=== PATIENT | female | born 1985 | race Hispanic/Latino ===

== ENCOUNTER 2016-09-25 16:30 | Emergency (ER) | payer MEDICAID ==
[~2016-09-25 16:30] MED LIST: CEPH-512 PO; DOCU-41 PO; IBUP-1827 PO; Lanolin TOPICAL; OXYC1TAB24 PO; PREN1TAB69 PO
--- NOTE | 2016-09-25 16:43 | ED.REPORT ---
HPI-URI / Cough / Cold Date of Service Sep 25, 2016 ED Provider: History of Present Illness: has influenza has nasal congestion also takes omeprazole. [facility] is primary care, was laying down when this started. symptoms have cleared now. Seen at [facility] 2 days ago, has positive influenza Nursing Notes Stated Complaint: DIFFICULTY BREATHING Nursing Notes Reviewed: Yes Allergies: Coded Allergies: No Known Allergies (Verified , 06/20/16) Scheduled Cephalexin (Keflex) 500 Mg Capsule 500 MG PO QID Docusate Sodium (Colace) 100 Mg Capsule 100 MG PO BID Vit/Fe Fumarate/Fa-Expunged Drug, Do (-Expunged Drug, Do Not Renew!) 1 Each Tablet 1 EACH PO DAILY Scheduled PRN ([Lanolin]) 2 APPLIC/GM OINT 1 APPLIC TOPICAL PRN PRN PRN apply to nipples Ibuprofen (Ibuprofen) 600 Mg Tablet 600 MG PO Q6H PRN PRN For Mild Pain oxyCODONE-Acetaminophen 5-325 mg (oxyCODONE-Acetaminophen 5-325 mg) 1 Each Tablet 1-2 TAB PO Q4H PRN PRN For Pain General Time Seen by MD: 16:42 Chief Complaint Cough, productive... Hx Obtained From: Patient Onset Occurred: 1 - 4 hours ago Symptom Duration: Waxes and wanes (resolved) Past Medical History Past Medical History Mastitis Past Surgical History Reports: Cholecystectomy Family History Reports: Diabetes mellitus Smoking History Never Smoker Social History Alcohol Use: Denies alcohol use Drug Use: Denies drug use Other Social History: Good social support, , Lives with children, Local resident Occupation no work or school 09/25/2016 Ambulatory Status Independent Review of Systems Basic Review of Systems Cardiovascular: No chest pain, No dyspnea on exertion, No orthopnea, No parox noct dyspnea, No palpitations : No dysuria, No frequency Musculoskeletal: No extremity swelling, No extremity pain, Full range of motion , Joints NL Hematologic: No bleeding, No bruising Endocrine: No cold intolerance, No heat intolerance, No weight gain, No weight loss Psychiatric: Normal thought content Physical Exam Initial Vital Signs Vital Signs (First) Date Time Temp Pulse Resp B/P Pulse Ox O2 Delivery O2 Flow Rate FiO2 09/25/16 16:46 36.8 90 20 122/93 98 Room Air Initial VS: Reviewed, Vital signs normal Head / Eyes: Atraumatic, Normocephalic, PERRL Neck: Supple, Non-tender, Full range of motion Cardiovascular: Regular rate & rhythm, Heart sounds normal, Intact distal pulses Abdomen / GI: Soft, Non-tender, No guarding, No rebound, No distention Back: No CVA tenderness Lymphatic: No lymphadenopathy Extremities: Vascular intact, Neuro intact, No swelling, No tenderness Skin: Warm, Dry, No cyanosis Neurologic: Alert, Oriented, Nonfocal Psychiatric: Mood/affect normal, Behavior normal, Normal thought content General/Constitutional: Awake, Alert, No acute distress, Well appearing, Well developed, Well hydrated, Well nourished, Cooperative, Not toxic appearing ENT: Atraumatic, Airway patent, Mucous membranes moist, Pharynx NL, No peritonsillar abscess Nose: Positive: Rhinorrhea Respiratory / Chest: Atraumatic, Breath sounds NL, Breath sounds = bilat, No respiratory distress, No rales, No rhonchi, No wheezing, No retractions, No stridor Cardiovascular: Heart rate NL, Regular rhythm, Heart sounds NL, No gallop Re-Eval/Medical Decision Med Decision/Clinical Course Med Decision/Clinical Course: patient with 5 children at home, 4 have the flu. Unable to get extra help. Differential Diagnosis: Positive: Influenza, Negative: Asthma exacerbation, Pertussis, Sinusitis Discharge & Departure Impression: Primary Impression: Influenza due to influenza A virus Additional Impression: Nasal congestion Disposition: Home Patient Instructions: Influenza (ED) Additional Instructions: You are positive for the influenza. Use aleve D in the red or blue box to help with congestion. You need to ask for this medication at the pharmacy counter. Push lots of fluids. Follow with [facility] next week for recheck. Return with any concerns. Referrals: Gabriel Meeks MD (PCP) EDSupervising Provider for [facility]: Lonnie Goodwin MD copies to: Gabriel Meeks MD, Sue ARNP Sep 25, 2016 16:43
[2016-09-25 16:46] VITALS: BP 122/93; PULSE 90; RESP 20; O2SAT 98
[2016-09-25 17:06] VITALS: BP 124/79; PULSE 84; O2SAT 98
== END 2016-09-25 17:12 | disposition home or self-care (01) ==
LOC: SED 16:30
DX: J10.89 Influenza due to other identified influenza virus with other manifestations (principal); R09.81 Nasal congestion; R05 Cough; Z90.49 Acquired absence of other specified parts of digestive tract